=== PATIENT | male | born 1995 | race Caucasian/White ===

== ENCOUNTER 2017-02-20 00:36 | Emergency (ER) | payer OTHER ==
[~2017-02-20] VITALS: Ht 177.8 cm; Wt 63.5 kg
[2017-02-20 00:42] VITALS: BP 120/74
--- NOTE | 2017-02-20 02:48 | NUR ---
PATIENT LEFT WITHOUT BEING SEEN BY DR. HERNADEZ. NO FURTHER CARE PROVIDED FOR PATIENT.
== END 2017-02-20 02:48 | disposition left against medical advice (07) ==
LOC: MED 00:36
DX: M54.9 Dorsalgia, unspecified (principal); Z53.21 Procedure and treatment not carried out due to patient leaving prior to being seen by health care provider